=== PATIENT | female | born 1950 | race African-American/Black ===

== ENCOUNTER 2017-03-28 16:35 | Inpatient (IN) | payer MEDICARE, MEDICAID ==
[~2017-03-28] VITALS: Ht 152.4 cm; Wt 145.1 kg
--- NOTE | ~2017-03-28 | PROC ---
[address] [address] PROCEDURE REPORT Name: TRU NAIK Room: [address] ADM IN M.R.#: [id number] Admission: 03/28/17 Attend Phys: Ja Thrasher MD Discharge: Date of : 52 Report #: [id number] THIS REPORT FOR: //name// For GI report, please see the Provation report in [employer] content. By: 06Medical Records Staff JAN /FAIZA
[~2017-03-28 16:35] MED LIST: BENICAR40 MG PO; FISH OIL 1,001000 M2 PO; IBUPROFEN 800800 M1 PO; LIPITOR 20 MG T20 M1 PO; MEDROLDOSEPACK PO; NORCO 5-325 TA1 EACH PO; OPCON-A EYE DRO15 M1 OP; REFRESH LIQUIGE15 ML OP; TOPROL XL100 MG PO; TRAMADOL 50 MG50 MG PO; VITAMIN D1000 UNI1 PO; ZYLOPRIM300 MG PO
[2017-03-28 16:41] VITALS: BP 185/75
[2017-03-28 17:40] LABS: HEMATOCRIT 42.3 % (37.0-47.0); HEMOGLOBIN 14.4 gm/dL (12.0-15.0); MCH 29.5 pg (26.0-34.0); MCHC 34.2 g/dL (28.0-37.0); MCV 86.5 fL (80.0-100.0); MPV 9.9 fl. (7.2-11.1); NUCLEATED RBCS 0 /100WBC; PLATELET COUNT* 158 thou/uL (150-400); RBC 4.89 mil/uL (4.20-5.00); RDW-CV 17.4 % (10.5-14.5); WBC 4.2 thou/uL (4.0-11.0)
[2017-03-28 17:42] LABS: CALCIUM 9.5 mg/dL (8.5-10.1); CREATININE 1.5 mg/dL (0.6-1.3)
[2017-03-28 17:46] LABS: ALBUMIN 2.4 g/dL (3.4-5.0); TOTAL BILIRUBIN 5.2 mg/dL (<0.1-1.0); TOTAL PROTEIN 7.5 g/dL (6.4-8.2)
[2017-03-28 17:57] LABS: ABSOLUTE BASOPHILS 0.1 thou/uL (0.0-0.2); ABSOLUTE EOSINOPHILS 0.2 thou/uL (0.0-0.7); ABSOLUTE LYMPHOCYTES 1.5 thou/uL (0.8-5.3); ABSOLUTE MONOCYTES 0.5 thou/uL (0.0-1.2); ABSOLUTE NEUTROPHILS 1.9 thou/uL (1.6-8.1); ATYPICAL LYMPHS 9 %
[2017-03-28 17:59] LABS: ANISOCYTOSIS 1+; LARGE PLATELETS FEW; PLATELET ESTIMATE ADEQUATE; POIKILOCYTOSIS 1+
[2017-03-28 18:22] LABS: URINE BLOOD NEGATIVE (Negative); URINE CLARITY CLEAR; URINE GLUCOSE-RANDOM NEGATIVE (Negative); URINE KETONES NEGATIVE (Negative); URINE LEUKOCYTES-REFLEX NEGATIVE (Negative); URINE NITRITE-REFLEX NEGATIVE (Negative); URINE PROTEIN NEGATIVE (Negative)
[2017-03-28 18:24] LABS: ICTOTEST (BILI CONFIRMATORY) Positive (Negative); URINE BILIRUBIN 1+ (Negative); URINE COLOR DARK YELLOW
[2017-03-28 21:26] VITALS: BP 171/80
[2017-03-28 21:45] VITALS: BP 156/65
[2017-03-29 04:00] VITALS: BP 107/47
[2017-03-29 04:30] LABS: ABSOLUTE EOSINOPHILS 0.2 thou/uL (0.0-0.7); ABSOLUTE LYMPHOCYTES 1.8 thou/uL (0.8-5.3); ABSOLUTE MONOCYTES 1.1 thou/uL (0.0-1.2); ABSOLUTE NEUTROPHILS 2.5 thou/uL (1.6-8.1); BASOPHILS 0.7 %; EOSINOPHILS 3.6 %; HEMATOCRIT 37.9 % (37.0-47.0); HEMOGLOBIN 12.8 gm/dL (12.0-15.0); LYMPHOCYTES 31.5 %; MCH 29.3 pg (26.0-34.0); MCHC 33.7 g/dL (28.0-37.0); MCV 87.1 fL (80.0-100.0); MONOCYTES 19.2 %; MPV 10.7 fl. (7.2-11.1); NUCLEATED RBCS 0 /100WBC; PLATELET COUNT* 96 thou/uL (150-400); RBC 4.35 mil/uL (4.20-5.00); RDW-CV 17.3 % (10.5-14.5); WBC 5.6 thou/uL (4.0-11.0)
[2017-03-29 04:42] LABS: CALCIUM 9.1 mg/dL (8.5-10.1); CREATININE 1.3 mg/dL (0.6-1.3); POTASSIUM 4.5 mmol/L (3.5-5.1)
[2017-03-29 05:37] LABS: PLATELET ESTIMATE DECREASED
[2017-03-29 05:38] LABS: ANISOCYTOSIS 1+; POIKILOCYTOSIS 1+; POLYCHROMASIA Occasional; TARGET CELLS Occasional
[2017-03-29 05:39] LABS: LARGE PLATELETS RARE
[2017-03-29 08:03] LABS: APTT 38.8 Seconds (25.0-31.3)
[2017-03-29 08:05] VITALS: BP 93/25
[2017-03-29 08:18] LABS: ALBUMIN 1.8 g/dL (3.4-5.0); DIRECT BILIRUBIN 2.5 mg/dL (<0.1-0.3); TOTAL BILIRUBIN 3.7 mg/dL (<0.1-1.0); TOTAL PROTEIN 5.7 g/dL (6.4-8.2)
[2017-03-29 16:00] VITALS: BP 137/41
[2017-03-29 17:09] LABS: HEPATITIS B SURFACE AG Negative (Negative)
[2017-03-29 17:37] LABS: CLARITY CLEAR; COLOR AMBER; SOURCE ASCITES; TOTAL CELL COUNT 85 /mm3; TOTAL VOLUME 3 ml
[2017-03-29 17:38] LABS: BF LYMPHOCYTES 94 %; BF POLYS 6 %; BF RBC 520 /mm3
[2017-03-29 20:22] VITALS: BP 103/60
[2017-03-30 04:09] LABS: HEMATOCRIT 37.3 % (37.0-47.0); HEMOGLOBIN 12.6 gm/dL (12.0-15.0); MCH 29.6 pg (26.0-34.0); MCHC 33.9 g/dL (28.0-37.0); MCV 87.3 fL (80.0-100.0); MPV 9.3 fl. (7.2-11.1); RBC 4.27 mil/uL (4.20-5.00); WBC 5.5 thou/uL (4.0-11.0)
[2017-03-30 04:25] LABS: ALBUMIN 1.8 g/dL (3.4-5.0); CALCIUM 9.3 mg/dL (8.5-10.1); CREATININE 1.7 mg/dL (0.6-1.3); POTASSIUM 4.7 mmol/L (3.5-5.1); TOTAL BILIRUBIN 3.4 mg/dL (<0.1-1.0)
[2017-03-30 08:40] VITALS: BP 132/57
[2017-03-30 16:00] VITALS: BP 111/53
[2017-03-30 21:50] VITALS: BP 107/64
[2017-03-31 04:39] LABS: HEMATOCRIT 34.7 % (37.0-47.0); HEMOGLOBIN 11.7 gm/dL (12.0-15.0); MCH 29.5 pg (26.0-34.0); MCHC 33.8 g/dL (28.0-37.0); MCV 87.3 fL (80.0-100.0); MPV 9.3 fl. (7.2-11.1); RBC 3.98 mil/uL (4.20-5.00); RDW-CV 17.3 % (10.5-14.5); WBC 4.2 thou/uL (4.0-11.0)
[2017-03-31 05:12] LABS: ALBUMIN 1.6 g/dL (3.4-5.0); CREATININE 1.4 mg/dL (0.6-1.3); POTASSIUM 4.9 mmol/L (3.5-5.1); TOTAL BILIRUBIN 3.6 mg/dL (<0.1-1.0); TOTAL PROTEIN 5.3 g/dL (6.4-8.2)
[2017-03-31 08:40] VITALS: BP 142/54
[2017-03-31 16:00] VITALS: BP 122/34
[2017-03-31 19:45] VITALS: BP 145/55
[2017-04-01 04:36] LABS: HEMATOCRIT 35.7 % (37.0-47.0); HEMOGLOBIN 12.2 gm/dL (12.0-15.0); MCH 29.8 pg (26.0-34.0); MCHC 34.2 g/dL (28.0-37.0); MCV 86.9 fL (80.0-100.0); MPV 9.7 fl. (7.2-11.1); RBC 4.11 mil/uL (4.20-5.00); RDW-CV 17.8 % (10.5-14.5); WBC 4.5 thou/uL (4.0-11.0)
[2017-04-01 04:53] LABS: ALBUMIN 1.6 g/dL (3.4-5.0); CALCIUM 9.3 mg/dL (8.5-10.1); CREATININE 1.3 mg/dL (0.6-1.3); MAGNESIUM 1.9 mg/dL (1.8-2.4); POTASSIUM 4.3 mmol/L (3.5-5.1); TOTAL BILIRUBIN 3.8 mg/dL (<0.1-1.0); TOTAL PROTEIN 5.6 g/dL (6.4-8.2)
[2017-04-01 08:49] VITALS: BP 107/31
[2017-04-01 13:51] VITALS: BP 146/57
[2017-04-01] MEDS ORDERED: FISH OIL 1,001000 M2 PO (14:02)
[2017-04-01] MEDS ORDERED: EYE DROPS15 M1 INTRAOCULR (14:08)
[2017-04-01] MEDS ORDERED: ALLOPURINOL 10100 M2 PO (14:08)
[2017-04-01] MEDS ORDERED: LIPITOR 20 MG T20 M1 PO (14:09)
[2017-04-01] MEDS ORDERED: BENICAR40 MG PO (14:10)
[2017-04-01 16:00] VITALS: BP 127/47
[2017-04-02 04:51] VITALS: BP 113/59
[2017-04-02 09:20] VITALS: BP 135/46
[2017-04-02] MEDS ORDERED: PROTONIX40 M1 PO (11:13)
[2017-04-02 11:51] LABS: ALBUMIN 1.7 g/dL (3.4-5.0); DIRECT BILIRUBIN 2.5 mg/dL (<0.1-0.3); TOTAL BILIRUBIN 4.2 mg/dL (<0.1-1.0); TOTAL PROTEIN 5.6 g/dL (6.4-8.2)
--- NOTE | 2017-04-02 12:47 | S ---
[place] [address] SURGICAL PATH RPT PROCEDURE Name: DAIANA DAVISON KORI Room: [address] IN M.R.#: [id number] Admission: 03/28/17 Date of : 52 Discharge: Report #: [id number] Path Case #: [id number] PATHOLOGY REPORT COLLECTION DATE: 04/01/2017 RECEIVED DATE: 04/01/2017 SUBMITTING PHYS: Dr. Maria Isabel Contreras OTHER PHYS: Dr. Ja Fox SPECIMEN(S) RECEIVED: A.Stomach bx for gastritis * * * * * * * * * * * * FINAL DIAGNOSIS: Stomach biopsies for gastritis: - Non-specific, severe chronic and active gastritis with erosion, negative for Helicobacter pylori organisms, granulomas, and dysplasia. (TARAH:mgr; 04/02/2017) COMMENT: Special Stain: Helicobacter pylori PATHOLOGIST: Steve Kenney M.D. REPORT ELECTRONICALLY SIGNED BY: Steve Kenney M.D. DATE/TIME: 04/02/2017 12:46 * * * * * * * * * * * * GROSS PATHOLOGY: Received in formalin labeled "Daiana Davison, stomach biopsies for gastritis," are 2 segments of nunez soft tissue measuring 0.8 x 0.3 x 0.2 cm in aggregate dimensions and ranging from 0.6 to 0.2 cm in maximum dimension. The specimen is submitted entirely in cassette A1. (TSD; 04/01/2017) CLINICAL HISTORY: None provided INITIAL CPT CODE(S): A; 04394, 48845 Professional services performed by [facility] at [facility], [address] [place] [address] , [place] [address]. Technical services performed by [facility] at [address] [place] [address], [facility] [address] [address]. [address] [place] [address] SURGICAL PATH RPT PROCEDURE Name: DAIANA DAVISON Room: [address] ADM IN .R.#: [id number] Admission: 03/28/17 Date of : 52 Discharge: Report #: [id number] Path Case #: [id number] [facility] [address] [address] PHONE: [phone] DIRECTOR: Tino Conley M.D. * * * END OF REPORT * * *
[2017-04-02 16:22] VITALS: BP 133/86
[2017-04-02 23:48] VITALS: BP 113/68
[2017-04-03 08:15] VITALS: BP 116/52
[2017-04-03 11:35] LABS: HEMATOCRIT 37.6 % (37.0-47.0); HEMOGLOBIN 12.8 gm/dL (12.0-15.0); MCH 29.5 pg (26.0-34.0); MCHC 34.1 g/dL (28.0-37.0); MCV 86.5 fL (80.0-100.0); MPV 8.9 fl. (7.2-11.1); RBC 4.35 mil/uL (4.20-5.00); RDW-CV 17.4 % (10.5-14.5); WBC 7.9 thou/uL (4.0-11.0)
[2017-04-03 11:47] LABS: ALBUMIN 1.6 g/dL (3.4-5.0); CALCIUM 9.2 mg/dL (8.5-10.1); CREATININE 1.2 mg/dL (0.6-1.3); TOTAL BILIRUBIN 4.4 mg/dL (<0.1-1.0); TOTAL PROTEIN 5.8 g/dL (6.4-8.2)
[2017-04-03 13:02] LABS: INR 2.2; PROTIME 21.3 Seconds (9.20-11.50)
[2017-04-03 16:18] VITALS: BP 118/64
[2017-04-03 21:00] VITALS: BP 105/79
[2017-04-04 00:13] VITALS: BP 120/64
[2017-04-04 04:48] LABS: ALBUMIN 1.6 g/dL (3.4-5.0); CALCIUM 9.2 mg/dL (8.5-10.1); CREATININE 1.2 mg/dL (0.6-1.3); POTASSIUM 4.8 mmol/L (3.5-5.1); TOTAL PROTEIN 5.7 g/dL (6.4-8.2)
[2017-04-04 09:00] VITALS: BP 138/55
[2017-04-04 16:43] VITALS: BP 135/67
[2017-04-04 20:30] VITALS: BP 155/67
[2017-04-05 04:29] LABS: HEMATOCRIT 36.3 % (37.0-47.0); HEMOGLOBIN 12.2 gm/dL (12.0-15.0); MCHC 33.7 g/dL (28.0-37.0); MCV 86.3 fL (80.0-100.0); MPV 9.1 fl. (7.2-11.1); NUCLEATED RBCS 0 /100WBC; PLATELET COUNT* 124 thou/uL (150-400); RDW-CV 17.4 % (10.5-14.5); WBC 6.5 thou/uL (4.0-11.0)
[2017-04-05 04:42] LABS: PREALBUMIN 5.2 mg/dL (18.0-35.7)
[2017-04-05 04:46] LABS: ALBUMIN 1.5 g/dL (3.4-5.0); CALCIUM 9.1 mg/dL (8.5-10.1); CREATININE 1.3 mg/dL (0.6-1.3); POTASSIUM 4.4 mmol/L (3.5-5.1); TOTAL BILIRUBIN 3.6 mg/dL (<0.1-1.0); TOTAL PROTEIN 5.7 g/dL (6.4-8.2)
[2017-04-05 06:42] LABS: ABSOLUTE EOSINOPHILS 0.7 thou/uL (0.0-0.7); ABSOLUTE LYMPHOCYTES 0.7 thou/uL (0.8-5.3); ABSOLUTE MONOCYTES 1.2 thou/uL (0.0-1.2); ABSOLUTE NEUTROPHILS 3.8 thou/uL (1.6-8.1); ANISOCYTOSIS 1+; PLATELET ESTIMATE DECREASED; POIKILOCYTOSIS 1+
[2017-04-05 08:00] VITALS: BP 154/71
[2017-04-05 14:44] VITALS: BP 154/71
[2017-04-05 16:33] VITALS: BP 154/71
[2017-04-05] MEDS ORDERED: LACTULOSE20 GM/30 M PO (16:54)
[2017-04-05] MEDS ORDERED: VITAMIN B-1100 M1 PO (16:55)
[2017-04-05] MEDS ORDERED: REGLAN 10 MG TA10 MG PO (16:55)
[2017-04-05] MEDS ORDERED: CENTRUM SILVER1 EAC4 PO (16:56)
[2017-04-05] MEDS ORDERED: FOLIC ACID1 MG PO (16:56)
[2017-04-05] MEDS ORDERED: PROTONIX40 M1 PO (16:57)
[2017-04-05] MEDS ORDERED: ZOFRAN4 MG PO (16:57)
--- NOTE | 2017-04-25 14:50 | CON ---
[address] [address] CONSULTATION Name: GUMAROTRUWOJCIECH SHEIKH Room: [address] IN M.R.#: [id number] Admission: 03/28/17 Attend Phys: Ja Thrasher MD Discharge: 04/05/17 Date of : 52 Report #: [id number] THIS REPORT FOR: //name// CC: Ja Thrasher [facility] DATE OF SERVICE: 03/29/2017 REQUESTING PHYSICIAN: Ja Thrasher MD. HISTORY OF PRESENT ILLNESS: This is a 66-year-old female with a 3-day history of abdominal pain, nausea and vomiting. The patient also reports that she has been constipated and her last bowel movement was this morning, which was very small. She usually takes MiraLax at home. She had a colonoscopy a couple of years ago, which was unremarkable. Since admission, the patient was found to have elevated liver enzymes and bilirubin of 3.7. There is also some evidence of abnormal liver contour and a lesion in the lobe of the liver. PAST MEDICAL HISTORY: Significant for hypertension, arthritis, gout and some sort of blood disease. ALLERGIES: SIGNIFICANT TO AMOXICILLIN, NAPROSYN. MEDICATIONS: Please refer to hospital MAR. SOCIAL HISTORY: The patient used to drink heavily, but reports that last drink was in [place] holiday. She also smoked cigarettes, but has quit a year ago. FAMILY HISTORY: Noncontributory. PHYSICAL EXAMINATION: VITAL SIGNS: Reveals blood pressure of 93/47, respirations 16, pulse 50, temperature 36.6. LUNGS: Clear. CARDIOVASCULAR: Regular. ABDOMEN: Large, soft, mildly tender to palpation in the right upper quadrant and left lower quadrant. Bowel sounds are positive. LABORATORY DATA: Reveal WBC of 5.6, hemoglobin 12.8, platelet is 96. Sodium is 140, potassium 4.5. AST is 459, ALT 406, alkaline phosphatase 213, albumin 1.8. INR is 2.0. Viral hepatitis serology is ordered and pending. IMAGING: [place] [address] CONSULTATION Name: TRU NAIK Room: [address] IN ..#: [id number] Admission: 03/28/17 Attend Phys: Ja Thrasher MD Discharge: 04/05/17 Date of : 52 Report #: [id number] ASSESSMENT AND PLAN: The patient with apparent chronic liver disease. We will obtain a hepatobiliary scan to further evaluate her significant elevation of her transaminases and alkaline phosphatase. She also has thickened gallbladder and a liver lesion. We will order AFP and make further recommendation based on findings. The patient is agreeable with plan. <ELECTRONICALLY SIGNED> By: Maria Isabel Contreras MD 04/25/17 1450 [id number] Contreras MD /nghia
== END 2017-04-05 17:00 | disposition home health service (06) | DRG 433 ==
LOC: M.ERS 16:35 → M.ORTHSURG 19:41 → M.TBA-ER 19:41 → M.ORTHSURG 21:44
PROVIDERS: Internal Medicine; Internal Medicine Gastroenterology; Nurse Practitioner Adult Health; Nurse Practitioner Family; ADMIT Internal Medicine
PROC: 0W9G3ZZ Drainage of Peritoneal Cavity, Percutaneous Approach (ICD-10-PCS; principal; 2017-03-29)
PROC: 0DB68ZX Excision of Stomach, Via Natural or Artificial Opening Endoscopic, Diagnostic (ICD-10-PCS; 2017-04-01)
DX: K70.40 Alcoholic hepatic failure without coma (principal); N17.9 Acute kidney failure, unspecified; K76.6 Portal hypertension; I13.0 Hypertensive heart and chronic kidney disease with heart failure and stage 1 through stage 4 chronic kidney disease, or unspecified chronic kidney disease; K29.70 Gastritis, unspecified, without bleeding; K70.31 Alcoholic cirrhosis of liver with ascites; M19.90 Unspecified osteoarthritis, unspecified site; M10.9 Gout, unspecified; R74.0 Nonspecific elevation of levels of transaminase and lactic acid dehydrogenase [LDH]; N18.3 Chronic kidney disease, stage 3 (moderate); K82.8 Other specified diseases of gallbladder; K44.9 Diaphragmatic hernia without obstruction or gangrene; Z88.1 Allergy status to other antibiotic agents; Z88.8 Allergy status to other drugs, medicaments and biological substances; Z87.891 Personal history of nicotine dependence; Z79.899 Other long term (current) drug therapy